=== PATIENT | male | born 1940 | race Caucasian/White ===

== ENCOUNTER → 2020-04-24 | Outpatient (CLI) | payer MEDICARE ==
[2020-04-24 15:12] LABS: African American GFR (CKD) >90 (>60 ml/min/1.73 sqM); Blood Urea Nitrogen 17 mg/dL (9-20); Non-African American GFR(CKD) 83 (>60 ml/min/1.73 sqM)
--- NOTE | 2020-04-24 16:21 | CT ---
CT CHEST FOR PULMONARY EMBOLISM. EXAMINATION TYPE: CT angio chest DATE OF EXAM: 04/24/2020 INDICATION: Thoracic aortic aneurysm. CT DLP: 714 mGycm, Automated exposure control for dose reduction was used. CONTRAST: Patient injected with 100 mL of Isovue 370. COMPARISON: 09/20/[address] [facility] CT chest TECHNIQUE: CT of the chest is performed on a spiral scan at 2 mm thick sections. Study is performed with intravenous contrast timed for evaluation for aortic evaluation. This will limit additional port ions of the evaluation. FINDINGS: The ascending thoracic aorta at the level the main pulmonary artery is 3.8 cm. Previous measurement 3 .9 cm. The main pulmonary artery at the bifurcation is 2.5 m. Aorta tapers normally through its visua lized course. No mediastinal or hilar adenopathy enlarged by CT criteria is evident. There is a minimal right pleural effusion. Some compressive atelectasis is likely present at the post erior right lung base. Limited CT section through the upper abdomen. There is a cyst at the superior pole right kidney. Ther e is elevation left diaphragm. IMPRESSIONS: 1. Ascending thoracic aortic dilatation to 3.8 cm, unchanged from comparison.
== END | disposition home or self-care (01) ==
LOC: RADCTMAIN 14:30
PROVIDERS: ATTEND Thoracic Surgery (Cardiothoracic Vascular Surgery)
DX: I77.810 Thoracic aortic ectasia (principal)
CPT/HCPCS: 82565; 84520; 71275; 36415; Q9967

== ENCOUNTER → 2021-05-10 | Outpatient (CLI) | payer MEDICARE ==
--- NOTE | 2021-05-11 09:21 | CT ---
EXAMINATION TYPE: CT chest wo con DATE OF EXAM: 05/10/2021 COMPARISON: CTA chest April 24, 2020 HISTORY: h/o thoracic aneurysm CT DLP: 642 mGycm. Automated Exposure Control for Dose Reduction was Utilized. TECHNIQUE: CT scan of the thorax is performed without IV contrast. FINDINGS: LUNGS: Mild to moderate posterior bibasilar linear scarring and/or atelectasis is redemonstrated. No pleural effusion or pneumothorax is seen bilaterally. Mild to moderate central right lower lobe perib ronchial wall thickening again seen. MEDIASTINUM: Lack of IV contrast is noted to limit evaluation for mediastinal and especially hilar ad enopathy. There are no definitive greater than 1 cm mediastinal lymph nodes. Stable mild cardiomegaly . No pericardial effusion is seen. Moderate to severe three-vessel coronary artery calcification. Mil d to moderate biatrial dilatation again seen. Prominent right and left pulmonary arteries redemonstra viviana consistent with underlying pulmonary artery hypertension. Ascending aorta measures up to 3.8 cm i n diameter axial image 24 similar to prior. OTHER: Dextroconvex scoliosis centered upper thoracic spine. Simple appearing thin-walled cyst upper pole of the right kidney with lobulated contour is redemonstrated. Some diverticula in the transverse colon near hepatic flexure again seen. Deep subcutaneous sutures anterior abdominal wall are inciden tally noted. IMPRESSION: Stable ectatic borderline aneurysmal ascending aorta up to 3.8 cm.
== END | disposition home or self-care (01) ==
LOC: RADCTMAIN 16:49
PROVIDERS: ATTEND Thoracic Surgery (Cardiothoracic Vascular Surgery)
DX: I71.2 Thoracic aortic aneurysm, without rupture (principal)
CPT/HCPCS: 71250

== ENCOUNTER → 2022-04-28 | Outpatient (CLI) | payer MEDICARE ==
--- NOTE | 2022-04-28 14:59 | CT ---
EXAMINATION TYPE: CT chest wo con CT DLP: 805 mGycm, Automated exposure control for dose reduction was used. DATE OF EXAM: 04/28/2022 2:46 PM COMPARISON: CT chest 05/10/2021, CTA chest 04/24/2020. CLINICAL INDICATION:Male, 81 years old with history of I71.20 THORACIC AORTIC ANEURYSM, WITHOUT RUPTU RE,; TECHNIQUE: Multiple axial images were obtained through the chest without IV contrast. Lack of IV or o ral contrast limits evaluation of solid and hollow organ viscera. FINDINGS: LUNGS/ PLEURA: No pleural effusion or pneumothorax. Similar mild to moderate posterior bibasilar line ar scarring and/or atelectasis. AIRWAY: Patent period mild to moderate central right lower lobe peribronchial wall thickening again s een. HEART: Mild to moderate biatrial dilation again seen. No pericardial effusion. Moderate to severe thr ee-vessel coronary artery calcifications. MEDIASTINUM: No gross evidence of adenopathy. VASCULATURE: Stable ascending thoracic aorta measuring up to 3.9 cm. Prominent right and left pulmon [place] arteries redemonstrated consistent with underlying pulmonary arterial hypertension. MUSCULOSKELETAL: No acute osseous abnormalities. Dextroconvex scoliosis are demonstrated. SOFT TISSUES/LYMPH NODES: Unremarkable. LOWER NECK: No significant findings. UPPER ABDOMEN: Stable simple cyst within the superior pole of the right kidney with lobulated contour . Additional subcentimeter hyperattenuating cortical foci likely representing proteinaceous/hemorrhag ic cyst. Atrophy of the left kidney. Colonic diverticulosis without surrounding inflammatory changes. Deep subcutaneous sutures of the anterior wall again seen. IMPRESSION: Stable ascending thoracic aorta ectasia measuring up to 3.9 cm.
== END | disposition home or self-care (01) ==
LOC: RADCTMAIN 14:14
PROVIDERS: ATTEND Thoracic Surgery (Cardiothoracic Vascular Surgery)
DX: I77.810 Thoracic aortic ectasia (principal)
CPT/HCPCS: 71250